=== PATIENT | female | born 1950 | race African-American/Black ===

== ENCOUNTER 2017-06-26 04:25 | Inpatient (IN) | payer OTHER, MEDICARE ==
[~2017-06-26] VITALS: Ht 157.5 cm; Wt 102.1 kg
[~2017-06-26 04:25] MED LIST: DOSTINEX PO; ENDOCET 10-3251 EACH PO; FUROSEMIDE20 M1 PO; HYDROCHLOROTHIA25 M1 PO; IBUPROFEN800 M1 PO; KLOR-CON M2020 ME1 PO; PANTOPRAZOLE SO40 M1 PO; ROCALTROL0.25 MC1 PO; ST. JOSEPH ASPI81 M1 PO; VITAMIN B12 SC; VITAMIN D31000 UNI1 PO
[2017-06-26] MEDS ORDERED: DILAUDID4 M1 PO (06:47)
[2017-06-26 07:37] LABS: ABSOLUTE BASOPHIL COUNT 0 /CUMM (0.0-0.2); ABSOLUTE EOSINOPHIL COUNT 0 /CUMM (0.0-0.7); ABSOLUTE GRANULOCYTE CT 4.4 /CUMM (1.4-6.5); ABSOLUTE MONOCYTE COUNT 0.4 /CUMM (0.10-0.60); BASOPHIL % 0.2 % (0.0-2.0); EOSINOPHIL % 0.3 % (0-5); GRANULOCYTE % 76.2 % (42.2-75.2); HEMATOCRIT 31.2 % (37-47); MEAN CORPUSCULAR HGB 26.6 PG (27.0-31.0); MEAN CORPUSCULAR VOLUME 83.2 FL (81.0-99.0); MEAN PLATELET VOLUME 8.7 FL (7.4-10.4); PLATELET COUNT 369 /CUMM (130-400); RED BLOOD CELL CT 3.75 /CUMM (4.20-5.40); WHITE BLOOD CELL COUNT 5.8 /CUMM (4.8-10.8)
--- NOTE | 2017-06-26 10:51 | Admission Core Measures ---
Acute Coronary Syndrome (CM) ACS Core Measures Acute Coronary Syndrome Diagnosis No Congestive Heart Failure (NEW) CHF Core Measures Congestive Heart Failure Diagnosis No Cerebrovascular Accident (NEW) CVA Core Measures CVA/TIA Diagnosis No Venous Thromboembolism VTE Core Yolie (View Protocol) VTE Risk Factors Surgery No Mechanical VTE Prophylaxis d/t N/A MechProphylax Ordered No VTE Pharm Prophylaxis d/t NA PharmProphylax ordered Problem List As ranked by this Provider includes Assessment & Plan 1. Pain due to knee joint prosthesis HOME MEDS Home Med List Aspirin ([place] Aspirin) 81 MG TABLET.DR 1 TAB PO DAILY HEARTHEALTH ( Reported) Calcitriol (Rocaltrol) 0.25 MCG CAPSULE 1 CAP PO DAILY UNKNOWN (Reported) Cholecalciferol (Vitamin D3) (Vitamin D3) 1,000 UNIT CAPSULE 2 CAP PO DAILY SUPPLEMENT (Reported) [DOSTINEX ] 0.5 MG 0.5 TAB PO ONCE A WEEK PER [employer] DEVELOPER (Reported) Furosemide 20 MG TABLET 1 TAB PO DAILY bp (Reported) Hydrochlorothiazide 25 MG TABLET 1 TAB PO DAILY BP (Reported) Hydromorphone HCl (Dilaudid) 4 MG TABLET 1 TAB PO TWICE DAILY PRN PAIN ( Reported) Ibuprofen 800 MG TABLET 1 TAB PO TID PRN PAIN (Reported) Pantoprazole Sodium 40 MG TABLET.DR 1 TAB PO DAILY REFLUX (Reported) Potassium Chloride (Klor-Con M20) 20 MEQ TAB.ER.PRT 2 TAB PO BID DUE TO DIURETICS (Reported) [VITAMIN B12] 1,000 MCG 1,000 MCG SC Q30D SUPPLEMENT (Reported)
--- NOTE | 2017-06-26 10:58 | Operative Report ---
Operative/Inv Procedure Report Surgery Date: 06/26/17 Name of Procedure: 1. Right total knee resection 2. Implantation of antibiotic loaded spacer Pre-Operative Diagnosis: Right periprosthetic knee infection Post-Operative Diagnosis: same Estimated Blood Loss: 50ml to 100ml Surgeon/[employer] Teacher: Tadeo GIL,Sam Tsai Anesthesia: block Operative/Procedure Note Note: Description of procedure: The patient was taken to the operating room and positively identified. After induction of spinal anesthesia she was positioned supine on the operating room table and all bony prominences were well-padded. Preoperative antibiotics were not administered at this point. A well-padded pneumatic tourniquet was placed on the right upper thigh. The right lower extremity was then prepped and draped in usual sterile fashion. After exsanguination with Esmarch the tourniquet was inflated to 275 mmHg. Utilizing the previous incision a standard medial parapatellar approach was made to the right knee. This was carried down through skin and subcutaneous tissue to the level of the fascia. Meticulous hemostasis was maintained with Bovie cautery. The extensor mechanism and patellar retinaculum were opened sharply. The medial and lateral gutters were re-created by excision of scar tissue. The patellar tendon was thinned out extensively. A medial release was performed. Samples of synovium were sent for microbiologic analysis. At this point antibiotics were administered. The femoral bone prosthesis interface was identified and disrupted utilizing a sagittal saw and osteotomes. The femoral component was removed minimizing bony damage. All retained cement was removed. Exposure continued until the tibia could be subluxed forward. Again using an oscillating saw as well as osteotomes the bone cement interface was disrupted in the tibial component was removed. All retained cement was removed from the tibial canal. The patella button was removed and a bur was used to remove the pegs. The knee was then copiously irrigated with 6 L of sterile saline. A Biomet stage I knee spacer was fashioned, utilizing 2 g of vancomycin and 1 g of tobramycin per bag of cement. Once the molds had fully cured, they were cemented into place with Palacos cement with gentamicin. The extensor mechanism and patellar retinaculum were repaired using interrupted #1 Vicryl sutures. The skin was reapproximated with interrupted 2-0 Vicryl and closed with rita. A sterile dressing was applied and the tourniquet was deflated. The patient was then taken to the recovery room in satisfactory condition.
--- NOTE | 2017-06-26 12:21 | Patient Discharge Instructions ---
Discharge Instructions General Discharge Information You were seen/treated for: Right knee pain due to prior hx total knee, periprosthetic infection You had these procedures: Revision right total knee replacement (removal total knee, implantation antibiotic spacer) Watch for these problems: Increasing pain despite the use of pain medication Increasing redness, warmth or swelling Drainage of any type from incision Inability to bear weight on operative leg Persistent nausea and vomiting Fever greater than 101.5 degrees Do not soak the wound: Yes No bath, but you may shower: Yes Other wound care: Please keep wound clean and dry. No ointments or lotions of any type on or near incision at any time. No exceptions. Your dressing will be changed by your nurse on the second day after your surgery. Daily dry dressing changes are recommended each day thereafter. Do not soak your wound in a bath at any time until otherwise indicated by your surgeon. You may shower, please dry wound immediately after shower with a clean towel. Special Instructions: Constipation: Pain medication can cause constipation. Dr. Piedra has recommended that you take Colace and miralax each day. You may discontinue this medication if you develop loose stool or diarrhea. If you wish to continue this medication, it is available over the counter. If you are unable to move your bowels after several days, if you are unable to pass gas and are developing bloating, nausea, or vomiting as a result, please contact your doctor. Diet Continue normal diet: Yes Recommended Diet: Regular Activity Full Activity/No Limits: No Activity Self Limited: Yes Pounds, do NOT lift more than: 10 Activity Limited to: Weight bear as tolerated Acute Coronary Syndrome Inclusion Criteria At DC or during hospital stay patient has or had the following: ACS DIAGNOSIS No Discharge Core Measures Meds if any: Prescribed or Continued at Discharge Meds if any: NOT Prescribed or Continued at Discharge Congestive Heart Failure Inclusion Criteria At DC or during hospital stay patient has or had the following: CHF DIAGNOSIS No Discharge Core Measures Meds if any: Prescribed or Continued at Discharge Meds if any: NOT Prescribed or Continued at Discharge Cerebrovascular accident Inclusion Criteria At DC or during hospital stay patient has or had the following: CVA/TIA Diagnosis No Discharge Core Measures Meds if any: Prescribed or Continued at Discharge Meds if any: NOT Prescribed or Continued at Discharge Venous thromboembolism Inclusion Criteria VTE Diagnosis No VTE Type NONE VTE Confirmed by (Test) NONE Discharge Core Measures - Per Current guidelines, there needs to be overlap - treatment for the first 5 days of Warfarin therapy. - If discharged on Warfarin prior to 5 days of - overlap therapy, the patient will need to be - assessed for post discharge needs including - *Post discharge parental anticoagulation - *Warfarin and/or parental anticoagulation education - *Follow up date to check INR post discharge At least 5 days overlap therapy as Inpatient No Meds if any: Prescribed or Continued at Discharge Note: Overlap Therapy is Warfarin and Anticoagulant Meds if any: NOT Prescribed or Continued at Discharge
--- NOTE | 2017-06-26 12:25 | Surgical Discharge Summary ---
Visit Information Visit Dates Admission Date: 06/26/17 Discharge Date: 06/30/17 History of Present Illness Chief Complaint: Right knee pain/infetion, hx of right total knee replacement Surgical History Pertinent Surgical History: cholecystectomy, knee replacement Review of Systems: See H&P Hospital Course Course Attending Physician: Sam Piedra MD Primary Care Physician: Osvaldo GIL,[facility] Course: Patient was admitted to the hospital for a revision right total knee replacement for a right periprosthetic knee knfection. On 06/26/17, the right total knee hardware was resected and antibiotic loaded spacer was implanted. The procedure was tolerated well, intraoperative cultures were obtained, and patient was transferred to a general surgical floor. A PICC line was inserted for administration of residential IV antibiotics. Diet was advanced and tolerated, and the patient is voiding and moving her bowels spontaneously. She was evaluated and treated by physical therapy, and is WBAT. At the time of hospital discharge , her vital signs are stable, neurovascular status is intact, and pain was controlled with the use of oral pain medications. Allergies: Coded Allergies: Penicillins (ITCHING 06/20/17) Sulfa (Sulfonamide Antibiotics) ("bad reaction" 06/20/17) Significant Procedures: Surgery Date: 06/26/17 (Dr. Piedra) Name of Procedure: 1. Right total knee resection 2. Implantation of antibiotic loaded spacer Pre-Operative Diagnosis: Right periprosthetic knee infection Disposition Summary Disposition Principal Diagnosis: Right periprosthetic knee infection Additional Diagnosis: same, s/p right total knee resection and implantation of antibiotic loaded spacer Discharge Disposition: SNF Discharge Instructions General Discharge Information Code Status: Full Code Patient's Diet: Regular, advance as tolerated Patient's Activity: WBAT Follow-Up Instructions/Appts: Follow up with Dr. Piedra in 6 weeks from date of surgery. Please call his office to arrange and/or confirm this appointment Medications at Discharge Discharge Medications: Stop taking the following medications: Aspirin ([place] Aspirin) 81 MG TABLET. ORAL DAILY Ibuprofen (Ibuprofen) 800 MG TABLET ORAL THREE TIMES DAILY as needed for PAIN Hydromorphone HCl (Dilaudid) 4 MG TABLET ORAL TWICE DAILY as needed for PAIN Continue taking these medications: Furosemide (Furosemide) 20 MG TABLET 1 Tablet ORAL DAILY Hydrochlorothiazide (Hydrochlorothiazide) 25 MG TABLET 1 Tablet ORAL DAILY Potassium Chloride (Klor-Con M20) 20 MEQ TAB.ER.PRT 2 Tablet ORAL TWICE DAILY Calcitriol (Rocaltrol) 0.25 MCG CAPSULE 1 Capsule ORAL DAILY Pantoprazole Sodium (Pantoprazole Sodium) 40 MG TABLET.DR 1 Tablet ORAL DAILY Cholecalciferol (Vitamin D3) (Vitamin D3) 1,000 UNIT CAPSULE 2 Capsule ORAL DAILY [DOSTINEX ] 0.5 MG 0.5 Tablet ORAL ONCE A WEEK [VITAMIN B12] 1,000 MCG 1,000 Microgram Inject into fatty tissue ONCE A MONTH Start taking the following new medications: Apixaban (Eliquis) 2.5 MG TABLET 1 Tablet ORAL TWICE DAILY Qty = 60 No Refills Docusate Sodium (Colace) 100 MG CAPSULE 1 Capsule ORAL TWICE DAILY Qty = 14 No Refills Instructions: DISCONTINUE USE IF YOU DEVELOP LOOSE STOOL OR DIARRHEA Polyethylene Glycol 3350 (Miralax) 17 GRAM POWD.PACK 1 Packet ORAL DAILY Qty = 7 No Refills Instructions: dissolve in water, DISCONTINUE USE IF YOU DEVELOP LOOSE STOOL OR DIARRHEA Morphine Sulfate (Ms Contin) 15 MG TABLET.ER 1 Tablet ORAL 2 x Daily as needed as needed for PAIN Qty = 6 No Refills Hydromorphone HCl (Dilaudid) 2 MG TABLET 1-2 Tablet ORAL EVERY 4-6 HOURS NEEDED as needed for PAIN Qty = 36 No Refills
[2017-06-26] MEDS ORDERED: COLACE100 M1 PO (12:30)
[2017-06-26] MEDS ORDERED: ELIQUIS2.5 M1 PO (12:30)
[2017-06-26] MEDS ORDERED: DILAUDID2 M1 PO (12:30)
[2017-06-26] MEDS ORDERED: MIRALAX17 G1 PO (12:30)
[2017-06-26] MEDS ORDERED: MS CONTIN15 M3 PO (12:30)
[2017-06-26 13:43] VITALS: BP 138/60; BP 168/60
--- NOTE | 2017-06-26 14:46 | PN- Orthopedic ---
Subjective Subjective: POSTOP CHECK r knee pain- wants higher dose pain meds as she takes vicodin at home regularly since september for knee pain. "still a little numb". no other complaints- no oob yet, no meal yet, +uo via bhatia, no cp/sob/n/v Objective Vital Signs and I&Os Vital Signs Date Time Temp Pulse Resp B/P B/P Pulse O2 O2 Flow FiO2 Mean Ox Delivery Rate 06/26 1343 98.5 61 18 168/60 94 Room Air Intake & Output 06/26 1600 06/26 0800 06/26 0000 06/25 1600 06/25 0800 06/25 0000 Intake Total Output Total Balance Patient 225 lb Weight Physical Exam: gen- nad card-s1s2 pulm- no audible wheeze ext- RLE: dressing cdi, pain at knee/distal thigh, palp dp, foot warm, gross motor intact in foot, limited sensory r foot. LLE: calf soft nt, foot warm Assessment/Plan Assessment/Plan A- POD0 sp r tkr revision/abx spacer insertion for infection, stable with uncontrolled postop pain. P- -adjust pain meds- add ms contin 15mg bid -iv vanco continuous - picc line in am- Berna PICKENS aware, pt aware. - home meds -hh diet -pt, wbat -eliquis to start in am -kyler bhatia in am Core Measures Venous Thromboembolism VTE Risk Factors Surgery No Mechanical VTE Prophylaxis d/t N/A MechProphylax Ordered No VTE Pharm Prophylaxis d/t NA PharmProphylax ordered
[2017-06-26 19:50] VITALS: BP 130/60
[2017-06-27 07:31] VITALS: BP 140/58
--- NOTE | 2017-06-27 09:10 | PN- Orthopedic ---
Subjective Subjective: No acute overnight events reported. Pt states that in initial post op period she had decreased sensory to right lower extremity, she did however receive a nerve block in pacu. She states that she is currently experiencing a return of sensory and motor. She denies chest pain, shortness of breath, and headache. She is passing flatus. Bhatia catheter in place. No nausea or vomitting. Tolerating diet. Has yet to ambulate due to sensory deficit yesterday. Objective Vital Signs and I&Os Vital Signs Date Time Temp Pulse Resp B/P B/P Pulse O2 O2 Flow FiO2 Mean Ox Delivery Rate 06/27 0731 98.3 52 18 140/58 99 Room Air 06/26 1950 98.6 58 20 130/60 95 Room Air 06/26 1343 98.5 61 18 138/60 94 Room Air Intake & Output 06/27 1600 06/27 0800 06/27 0000 06/26 1600 06/26 0800 06/26 0000 Intake Total 1280 705 700 Output Total 600 375 690 Balance 680 330 10 Intake, IV 800 225 375 Intake, Oral 480 480 325 Output, 0 0 40 Drainage Output, Urine 600 375 650 Patient 225 lb Weight Physical Exam: General: Alert and oriented x3, no acute distress Cardiac: RRR, s1s2 Pulm: CTA bilaterally Abd: +bs. soft, non-tender, non-distended Extremities: Moves all extremities, motor and sensory function intact. Skin warm and well perfused. Bilateral calves soft and non-tender. Dressing dry and intact. VEENA holding suction with sanguinous drainage, minimal. Assessment/Plan Assessment/Plan This is a 66 year old female, POD 1 s/p I&D/revision Right total knee replacement for septic joint. -PICC line today prior to administration of eliquis, consent obtained, Berna aware -Continue vancomycin 1g q12 for now, appreciate ID recommendations -Activity: OOB, WBAT -Dressing: Dressing change tomorrow by surgical PA team -Drain: Will be dc'd later today -DVT PPX: Eliquis 2.5 bid beginning this am -Diet: As tolerated, dc iv fluids this am -DC bhatia catheter -Continue current pain regimen Will d/w Dr. Piedra Core Measures Venous Thromboembolism VTE Risk Factors Surgery No Mechanical VTE Prophylaxis d/t N/A MechProphylax Ordered No VTE Pharm Prophylaxis d/t NA PharmProphylax ordered
[2017-06-27 09:41] LABS: ABSOLUTE BASOPHIL COUNT 0 /CUMM (0.0-0.2); ABSOLUTE EOSINOPHIL COUNT 0 /CUMM (0.0-0.7); ABSOLUTE MONOCYTE COUNT 0.5 /CUMM (0.10-0.60); BASOPHIL % 0 % (0.0-2.0); EOSINOPHIL % 0 % (0-5); RBC DISTRIBUTION WIDTH 17.3 % (11.5-14.5)
[2017-06-27 09:58] LABS: ABSOLUTE GRANULOCYTE CT 7.4 /CUMM (1.4-6.5); MEAN CORPUSCULAR HGB 26.8 PG (27.0-31.0); MEAN CORPUSCULAR HGB CONC 32.2 G/DL (33.0-37.0); MEAN CORPUSCULAR VOLUME 83.3 FL (81.0-99.0); MEAN PLATELET VOLUME 9.7 FL (7.4-10.4); RED BLOOD CELL CT 3.14 /CUMM (4.20-5.40)
[2017-06-27 10:02] LABS: HEMATOCRIT 26.2 % (37-47); WHITE BLOOD CELL COUNT 8.8 /CUMM (4.8-10.8)
[2017-06-27 11:35] LABS: GRANULOCYTE % 83.4 % (42.2-75.2); PLATELET COUNT 277 /CUMM (130-400)
--- NOTE | 2017-06-27 11:46 | RADIOLOGY REPORT ---
EXAMINATION: XR PORTABLE CHEST CLINICAL INFORMATION: PICC line placement confirmation COMPARISON: None TECHNIQUE: Portable frontal view of the chest was obtained. FINDINGS: There is a right-sided PICC line which terminates near the cavoatrial junction. The lungs are well expanded. There is no focal consolidation, edema, or effusion. No pneumothorax. The cardiomediastinal silhouette is within normal limits. No acute osseous abnormality. IMPRESSION: Right-sided PICC line terminating near the cavoatrial junction. Clear lungs.
[2017-06-27 14:12] VITALS: BP 140/82
--- NOTE | 2017-06-27 18:32 | ULTRASOUND REPORT ---
EXAMINATION: US TRIPLEX LOWER EXTREMITY, RIGHT CLINICAL INFORMATION: Calf pain. Status post right total knee replacement with nerve block. Surgery performed on 06/26/2017. COMPARISON: None TECHNIQUE: Color-flow triplex imaging with spectral analysis and compression Doppler were performed on the lower extremity. FINDINGS: Respiratory variation, normal compression and augmented flow are noted throughout the lower extremity. The visualized common femoral vein, superficial femoral vein, profunda femoral vein, and midcalf veins show no evidence of deep venous thrombosis. The popliteal fossa could not be evaluated due to overlying bandages. There is no focal fluid collection. IMPRESSION: Normal triplex scan without evidence of deep venous thrombosis in the right leg. Note that the popliteal fossa could not be evaluated due to overlying bandages.
[2017-06-27 22:59] VITALS: BP 130/82
[2017-06-28 06:26] VITALS: BP 136/72
[2017-06-28 09:22] LABS: ABSOLUTE BASOPHIL COUNT 0 /CUMM (0.0-0.2); ABSOLUTE EOSINOPHIL COUNT 0 /CUMM (0.0-0.7); ABSOLUTE LYMPH COUNT 1.8 /CUMM (1.2-3.4); ABSOLUTE MONOCYTE COUNT 0.8 /CUMM (0.10-0.60); BASOPHIL % 0.4 % (0.0-2.0); EOSINOPHIL % 0.5 % (0-5); GRANULOCYTE % 69.5 % (42.2-75.2); HEMATOCRIT 25.2 % (37-47); MEAN CORPUSCULAR HGB 26.9 PG (27.0-31.0); MEAN CORPUSCULAR HGB CONC 32.1 G/DL (33.0-37.0); MEAN PLATELET VOLUME 9.6 FL (7.4-10.4); PLATELET COUNT 272 /CUMM (130-400); RBC DISTRIBUTION WIDTH 17.9 % (11.5-14.5); WHITE BLOOD CELL COUNT 8.6 /CUMM (4.8-10.8)
--- NOTE | 2017-06-28 11:06 | PN- Orthopedic ---
Subjective Subjective: Concerns earlier about a malfunctioning picc line, resolved after pressure dressing removed. Pt without complaints of RUE discomfort. Denies chest pain, shortness of breath and difficulty breathing. Denies nausea and vomitting. Has been oob, ambulating. Continues to complain of consistent pain to right knee. Objective Vital Signs and I&Os Vital Signs Date Time Temp Pulse Resp B/P B/P Pulse O2 O2 Flow FiO2 Mean Ox Delivery Rate 06/28 0626 99.0 72 20 136/72 97 06/27 2259 98.1 67 18 130/82 97 Room Air 06/27 1412 98.5 65 20 140/82 94 Room Air 06/27 1308 Room Air Intake & Output 06/28 1600 06/28 0800 06/28 0000 06/27 1600 06/27 0800 06/27 0000 Intake Total 520 423 115 1275 705 Output Total 600 1050 850 600 375 Balance -80 -210 -50 680 330 Intake, IV 280 800 225 Intake, Oral 240 840 800 480 480 Output, 0 0 Drainage Output, Urine 600 1050 850 600 375 Physical Exam: General: AAO x3, no acute distress Extremities: Moves all extremities, distal sensation grossly intact. Skin warm and well perfused. DP pulses palpable bialterally. Bilateral calves soft and non-tender. Dressing dry and intact. Assessment/Plan Assessment/Plan This is a 66 year old female, POD 2, s/p infected right knee removal of prosthesis with placement of antibiotic spacer. PICC line placed one day ago, patent after pressure dressing removal this am. -Continue MS Contin 15 bid/ dilaudid 4-[address] Piedra -Continue OOB, WBAT -Dr. Guevara to see pt today, appreciate recommendations -Eliquis 2.5 mg bid for dvt ppx -Anticipate dc to str, pt has bed at [facility] Discussed with Dr. Piedra Core Measures Venous Thromboembolism VTE Risk Factors Surgery No Mechanical VTE Prophylaxis d/t N/A MechProphylax Ordered No VTE Pharm Prophylaxis d/t NA PharmProphylax ordered
--- NOTE | 2017-06-28 12:34 | Cons- Infect Disease ---
General Information and HPI Consulting Request Date of Consult: 06/28/17 Requested By: Sam Piedra MD Reason for Consult: Rule out septic right knee prosthesis Source of Information: patient Exam Limitations: poor historian History of Present Illness: This is a 66-year-old woman with a history of hypertension and osteoarthritis, status post right and left knee replacements, 7 and 5 years prior to admission respectively at [facility], status post uncomplicated laparoscopic cholecystectomy over 2 months prior to admission at [facility], treated for 2 urinary tract infections over the last month, with the development of right knee pain and swelling one month prior to admission, with an initial attempt at an arthrocentesis yielding no fluid, but with a repeat attempt several weeks prior to admission revealing over 50,000 white blood cells, 90% polys, with the fluid apparently submitted to a lab in [place], which identified calcium pyrophosphate crystals, "indeterminant" for Staph panel, "positive" for Enterococcus panel and "negative " for Chen panel, admitted on June 26 for removal of the right knee prosthesis with implantation of an antibiotic loaded spacer, with Cefazolin prophylaxis. On admission she was afebrile. Laboratory data revealed a white blood cell count of 6000. She was begun on Vancomycin postoperatively and has remained afebrile with a normal white blood cell count. Her cultures are so far negative. At present she does complain of pain in the right knee but has no other complaints. Allergies/Medications Allergies: Coded Allergies: Penicillins (ITCHING 06/20/17) Sulfa (Sulfonamide Antibiotics) ("bad reaction" 06/20/17) Home Med List: Apixaban (Eliquis) 2.5 MG TABLET 1 TAB PO BID anticoagulation Aspirin (Lemhi Aspirin) 81 MG TABLET. 1 TAB PO DAILY HEARTHEALTH ( Reported) Calcitriol (Rocaltrol) 0.25 MCG CAPSULE 1 CAP PO DAILY UNKNOWN (Reported) Cholecalciferol (Vitamin D3) (Vitamin D3) 1,000 UNIT CAPSULE 2 CAP PO DAILY SUPPLEMENT (Reported) Docusate Sodium (Colace) 100 MG CAPSULE 1 CAP PO BID CONSITPATION DISCONTINUE USE IF YOU DEVELOP LOOSE STOOL OR DIARRHEA [DOSTINEX ] 0.5 MG 0.5 TAB PO ONCE A WEEK PER 911 TELECOMMUNICATOR (Reported) Furosemide 20 MG TABLET 1 TAB PO DAILY bp (Reported) Hydrochlorothiazide 25 MG TABLET 1 TAB PO DAILY BP (Reported) Hydromorphone HCl (Dilaudid) 4 MG TABLET 1 TAB PO TWICE DAILY PRN PAIN ( Reported) Hydromorphone HCl (Dilaudid) 2 MG TABLET 1-2 TAB PO Q4-6 PRN PRN PAIN Ibuprofen 800 MG TABLET 1 TAB PO TID PRN PAIN (Reported) Morphine Sulfate (Ms Contin) 15 MG TABLET.ER 1 TAB PO BIDP PRN PAIN Pantoprazole Sodium 40 MG TABLET.DR 1 TAB PO DAILY REFLUX (Reported) Polyethylene Glycol 3350 (Miralax) 17 GRAM POWD.PACK 1 PAC PO DAILY CONSTIPATION dissolve in water, DISCONTINUE USE IF YOU DEVELOP LOOSE STOOL OR DIARRHEA Potassium Chloride (Klor-Con M20) 20 MEQ TAB.ER.PRT 2 TAB PO BID DUE TO DIURETICS (Reported) [VITAMIN B12] 1,000 MCG 1,000 MCG SC Q30D SUPPLEMENT (Reported) Past History Medical History Blood Transfusion Hx: Yes Cardiovascular: hypertension Respiratory: pneumonia Gastrointestinal: GERD Musculoskeletal: osteoarthritis Isolation History: Standard Influenza Vaccine: 04/09/17 Surgical History Surgical History: appendectomy, cholecystectomy, hysterectomy, knee replacement, GASTRIC BYPASS BREAST REDUCTION CARPAL TUNNEL Psychosocial History Where Do You Live? Home Smoking Status: Never Smoked Review of Systems Review of Systems Constitutional: Reports: chills. Denies: fever. Exam & Diagnostic Data Last 24 Hrs of Vital Signs/I&O Vital Signs Date Time Temp Pulse Resp B/P B/P Pulse O2 O2 Flow FiO2 Mean Ox Delivery Rate 06/28 0626 99.0 72 20 136/72 97 06/27 2259 98.1 67 18 130/82 97 Room Air 06/27 1412 98.5 65 20 140/82 94 Room Air 06/27 1308 Room Air Intake & Output 06/28 1600 06/28 0800 06/28 0000 Intake Total 520 840 Output Total 600 1050 Balance -80 -210 Intake, IV 280 Intake, Oral 240 840 Output, Urine 600 1050 Physical Exam Other Physical Findings: Afebrile. She is awake and alert in no acute distress. Skin reveals no rash. HEENT negative. Neck is supple with no adenopathy. Lungs are clear. Heart regular rhythm with no murmur. Abdomen is obese, soft, nontender with positive bowel sounds. Back no CVA tenderness. Extremities right knee incision clean, with no erythema or drainage; decreased range of motion; left knee with no inflammation and with good range of motion. Neuro is without focality. Last 24 Hours of Lab Results: Laboratory Tests 06/28 0730 Chemistry Sodium (137 - 145 mmol/L) 136 L Potassium (3.5 - 5.1 mmol/L) 4.2 Chloride (98 - 107 mmol/L) 100 Carbon Dioxide (22 - 30 mmol/L) 28 Anion Gap (5 - 16) 8 BUN (7 - 17 mg/dL) 15 Creatinine (0.5 - 1.0 mg/dL) 0.6 Estimated GFR (>60 ml/min) > 60 BUN/Creatinine Ratio (7 - 25 %) 25.0 Hematology CBC w Diff NO MAN DIFF REQ WBC (4.8 - 10.8 /CUMM) 8.6 RBC (4.20 - 5.40 /CUMM) 3.00 L Hgb (12.0 - 16.0 G/DL) 8.1 L Hct (37 - 47 %) 25.2 L MCV (81.0 - 99.0 FL) 84.0 MCH (27.0 - 31.0 PG) 26.9 L RDW (11.5 - 14.5 %) 17.9 H Plt Count (130 - 400 /CUMM) 272 MPV (7.4 - 10.4 FL) 9.6 Gran % (42.2 - 75.2 %) 69.5 Lymphocytes % (20.5 - 51.1 %) 20.9 Monocytes % (1.7 - 9.3 %) 8.7 Eosinophils % (0 - 5 %) 0.5 Basophils % (0.0 - 2.0 %) 0.4 Absolute Granulocytes (1.4 - 6.5 /CUMM) 6.0 Absolute Lymphocytes (1.2 - 3.4 /CUMM) 1.8 Absolute Monocytes (0.10 - 0.60 /CUMM) 0.8 H Absolute Eosinophils (0.0 - 0.7 /CUMM) 0 Absolute Basophils (0.0 - 0.2 /CUMM) 0 PUBS MCHC (33.0 - 37.0 G/DL) 32.1 L Last 24 Hours of Christopher Results: OR cultures June 26 labeled right knee synovium negative, with 1 specimen revealing few white blood cells and rare gram-positive cocci Urine culture June 26 negative Diagnostic Data Recent Imaging Findings: Doppler of the right lower extremity June 27 negative Chest x-ray June 27 negative Assessment/Plan Assessment/Plan Impression: This is a 66-year-old woman with a history of hypertension and osteoarthritis, status post right and left knee replacements, 7 and 5 years prior to admission respectively at [facility], status post uncomplicated laparoscopic cholecystectomy over 2 months prior to admission at [facility], treated for 2 urinary tract infections over the past month, with the development of right knee pain and swelling one month prior to admission, with arthrocentesis revealing over 50,000 white blood cells, 90% polys, with the fluid apparently submitted to a lab in [place], which identified calcium pyrophosphate crystals, "indeterminant" for Staph panel , "positive" for Enterococcus panel and "negative" for Chen panel, admitted on June 26 for removal of the right knee prosthesis with implantation of an antibiotic loaded spacer. The OR cultures are so far negative and, with evidence of calcium pyrophosphate crystals, her inflammation may all be secondary to pseudogout. A gram stain of one of the OR specimens did reveal rare gram-positive cocci and she can be continued on antibiotics pending final cultures. The significance of the culture results from [place] is unclear and it is difficult to recommend treatment based on these results. She was recently treated for a urinary tract infection, which could affect her OR cultures, but she states she was off antibiotics for at least 4 days prior to admission. Suggestion: 1. Follow-up final OR cultures 2. Further treatment of pseudogout per Orthopedics 3. Continue Vancomycin pending above, but, if final cultures are negative, would discontinue Vancomycin and follow off antibiotics Joie Mcmahon MD is covering until July 02 Consult Acknowledgment - Thank you for your consult request.
[2017-06-28 14:29] VITALS: BP 116/62
[2017-06-28 22:31] VITALS: BP 134/72
--- NOTE | 2017-06-29 08:59 | PN- Orthopedic ---
Subjective Subjective: Still in moderate to severe pain, most pain is anterior as well as cramping sensation in the lateral lower leg. Thinks she may have had a fever last night. No chest pain or shortness of breath no cough Objective Vital Signs and I&Os Vital Signs Date Time Temp Pulse Resp B/P B/P Pulse O2 O2 Flow FiO2 Mean Ox Delivery Rate 06/28 2231 99.4 68 18 134/72 94 Room Air 06/28 1751 99.2 06/28 1429 99.8 79 18 116/62 96 Room Air Intake & Output 06/29 1600 06/29 0800 06/29 0000 06/28 1600 06/28 0800 06/28 0000 Intake Total 480 790 520 840 Output Total 1800 327 406 364 7382 Balance -1800 153 365 -80 -210 Intake, IV 290 280 Intake, Oral 480 500 240 840 Number 1 Bowel Movements Output, Stool 2 Output, Urine 1800 325 210 577 6844 Physical Exam: Well-developed well-nourished no apparent distress. HEENT: Atraumatic, extraocular motion intact Neck: Supple, no lymphadenopathy Respiratory: No respiratory distress Extremities: No edema RIGHT lower extremity dressing in place, Incision line is clean dry and intact No signs of infection. Mild joint effusion Range of motion is 5-75. Neurovascularly intact distally Bilateral calves are supple, nontender. Neuro: Alert and oriented x3 Psych: Mood affect normal, normal memory normal judgment. Skin: Warm and dry, no rash on exposed skin Results Last 48 Hours of Labs: Laboratory Tests 06/28 0730 Chemistry Sodium (137 - 145 mmol/L) 136 L Potassium (3.5 - 5.1 mmol/L) 4.2 Chloride (98 - 107 mmol/L) 100 Carbon Dioxide (22 - 30 mmol/L) 28 Anion Gap (5 - 16) 8 BUN (7 - 17 mg/dL) 15 Creatinine (0.5 - 1.0 mg/dL) 0.6 Estimated GFR (>60 ml/min) > 60 BUN/Creatinine Ratio (7 - 25 %) 25.0 Hematology CBC w Diff NO MAN DIFF REQ WBC (4.8 - 10.8 /CUMM) 8.6 RBC (4.20 - 5.40 /CUMM) 3.00 L Hgb (12.0 - 16.0 G/DL) 8.1 L Hct (37 - 47 %) 25.2 L MCV (81.0 - 99.0 FL) 84.0 MCH (27.0 - 31.0 PG) 26.9 L RDW (11.5 - 14.5 %) 17.9 H Plt Count (130 - 400 /CUMM) 272 MPV (7.4 - 10.4 FL) 9.6 Gran % (42.2 - 75.2 %) 69.5 Lymphocytes % (20.5 - 51.1 %) 20.9 Monocytes % (1.7 - 9.3 %) 8.7 Eosinophils % (0 - 5 %) 0.5 Basophils % (0.0 - 2.0 %) 0.4 Absolute Granulocytes (1.4 - 6.5 /CUMM) 6.0 Absolute Lymphocytes (1.2 - 3.4 /CUMM) 1.8 Absolute Monocytes (0.10 - 0.60 /CUMM) 0.8 H Absolute Eosinophils (0.0 - 0.7 /CUMM) 0 Absolute Basophils (0.0 - 0.2 /CUMM) 0 PUBS MCHC (33.0 - 37.0 G/DL) 32.1 L Assessment/Plan Assessment/Plan This is a 66 year old female, POD 3, s/p infected right knee removal of prosthesis with placement of antibiotic spacer. PICC line placed one day ago, patent after pressure dressing removal this am. -Continue pain regiment, avoid IV narcotics with plans to discharge patient to half-way facility later today versus tomorrow. Pain has been an issue for her and she may need another day following her revision surgery -monitor for fever -Continue OOB, WBAT -ID following, appreciate recommendations, awaiting final or cultures -Eliquis 2.5 mg bid for dvt ppx -Daily dressing changes, dry sterile dressing applied today by myself Core Measures Venous Thromboembolism VTE Risk Factors Surgery No Mechanical VTE Prophylaxis d/t N/A MechProphylax Ordered No VTE Pharm Prophylaxis d/t NA PharmProphylax ordered
--- NOTE | 2017-06-29 13:52 | PN- Infect Dx ---
Subjective Subjective: R knee with decreased swelling; reports local discomfort. No fever. Review of Systems Comments: 12 points reviewed as noted, otherwise negative. Objective Last 24 Hrs of Vital Signs/I&O Vital Signs Date Time Temp Pulse Resp B/P B/P Pulse O2 O2 Flow FiO2 Mean Ox Delivery Rate 06/28 2231 99.4 68 18 134/72 94 Room Air 06/28 1751 99.2 06/28 1429 99.8 79 18 116/62 96 Room Air Intake & Output 06/29 1600 06/29 0800 06/29 0000 Intake Total 480 Output Total 1800 327 Balance -1800 153 Intake, Oral 480 Number 1 Bowel Movements Output, Stool 2 Output, Urine 1800 325 Physical Exam Other Physical Findings: Afebrile. She is awake and alert in no acute distress. Skin reveals no rash. HEENT negative. Neck is supple with no adenopathy. Lungs are clear. Heart regular rhythm with no murmur. Abdomen is obese, soft, nontender with positive bowel sounds. Back no CVA tenderness. Extremities right knee incision clean, with no erythema or drainage; decreased range of motion; left knee with no inflammation and with good range of motion. Neuro is without focality. Results Last 24 Hours of Lab Results: SPEC #: [id number] GELA: 06/26/17 STATUS: COMP RECD: 06/26/[address]: Tadeo GILRowe SOURCE: EXTREMITIE ENTR: 06/26/17 [facility] DR: Osvaldo GIL,[facility]: KNEE RIGHT ORDERED: XTRMOR COMMENT: ADDITIONAL INFORMATION: RIGHT KNEE SYNOVIUM RECEIVED 1 LARGE PIECE OF SYNOVIAL TISSUE IN STERILE CUP Procedure Result > GRAM STAIN Final 06/26/171453 WHITE BLOOD CELLS FEW GRAM POSITIVE COCCI RARE > EXTREMITIES OR SPECIMEN Final 06/29/171217 NO GROWTH AFTER 3 DAYS Last 24 Hours of Christopher Results: CXR FINDINGS: There is a right-sided PICC line which terminates near the cavoatrial junction. The lungs are well expanded. There is no focal consolidation, edema, or effusion. No pneumothorax. The cardiomediastinal silhouette is within normal limits. No acute osseous abnormality. IMPRESSION: Right-sided PICC line terminating near the cavoatrial junction. Clear lungs. DICTATED BY: Adam GIL,Aneduy DATE/TIME DICTATED:06/27/171140 INVENTORY ASSOCIATE:FER DATE/TIME TRANSCRIBED:06/27/171140 Assessment/Plan Impression: 66-year-old woman with a history of hypertension and osteoarthritis, status post right and left knee replacements, 7 and 5 years prior to admission respectively at [facility], developed right knee pain and swelling one month prior to admission, with arthrocentesis revealing over 50,000 white blood cells, 90% polys, with the fluid apparently submitted to a lab in [place], which identified calcium pyrophosphate crystals, "indeterminant" for Staph panel, "positive" for Enterococcus panel and "negative" for Chen panel, admitted on June 26 for removal of the right knee prosthesis with implantation of an antibiotic loaded spacer. POD 3, s/p infected right knee removal of prosthesis with placement of antibiotic spacer. PICC line placed one day ago, patent after pressure dressing removal this am. The OR cultures are so far negative and, with evidence of calcium pyrophosphate crystals. A gram stain of the OR specimens did reveal rare gram-positive cocci and she can be continued on antibiotics pending final cultures. The significance of the culture results from [place] is unclear and it is difficult to recommend treatment based on these results. She was recently treated for a urinary tract infection, which could affect her OR cultures, but she states she was off antibiotics for at least 4 days prior to admission. Suggestion: 1. Follow-up final OR cultures (06/30); obtain ESR/CRP in am. 2. Further treatment of pseudogout per Orthopedics 3. Continue Vancomycin pending above.
[2017-06-29 15:01] VITALS: BP 138/78
[2017-06-29 22:10] VITALS: BP 144/60
[2017-06-30 06:58] VITALS: BP 126/74
--- NOTE | 2017-06-30 09:30 | PN- Orthopedic ---
Subjective Subjective: "I'm getting better but I still have a lot of pain" "Don't push me out of here- I'm not ready" No cp/sob/n/v, clover hh diet, +voids, +bm. OOB with PT this am "went ok" Objective Vital Signs and I&Os Vital Signs Date Time Temp Pulse Resp B/P B/P Pulse O2 O2 Flow FiO2 Mean Ox Delivery Rate 06/30 0658 98.7 84 18 126/74 95 Room Air 06/29 2210 98.1 84 18 144/60 96 Room Air 06/29 1501 98.8 76 18 138/78 98 Room Air Intake & Output 06/30 1600 06/30 0800 06/30 0000 06/29 1600 06/29 0800 06/29 0000 Intake Total 510 780 900 480 Output Total 1800 327 Balance 510 780 900 -1800 153 Intake, IV 30 300 300 Intake, Oral 480 480 600 480 Number 2 2 1 Bowel Movements Output, Stool 2 Output, Urine 1800 325 OR cultures x2: negative x3 days (final) Physical Exam: gen- nad card- s1s2 rrr pulm- ctab abd- soft nt ext- right knee incision CDI, no erythema or drainage, ttp at incision, slight edema, dressing intact. right foot warm with palp dp, gross sensate/motor intact. bl calves soft nt. Results Last 48 Hours of Labs: Laboratory Tests 06/30 0530 Chemistry C-Reactive Prot, Quant Pending Hematology ESR Westergren Pending Assessment/Plan Assessment/Plan A- POD4 sp R TKR revision (hardware removal, abx spacer insertion), currently stable with continued postop pain, helped with current pain med regimen, with final OR cxs negative. P- cont shelter vanco via picc per Dr. Piedra appreciate ID input OOB, ambulate, WBAT, PT eliquis 2.5 BID, ALPS at rest hh diet continue PO pain meds dc planning to [facility]- ?has bed will dw w attending Core Measures Venous Thromboembolism VTE Risk Factors Surgery No Mechanical VTE Prophylaxis d/t N/A MechProphylax Ordered No VTE Pharm Prophylaxis d/t NA PharmProphylax ordered
--- NOTE | 2017-06-30 10:51 | PN- Infect Dx ---
Subjective Subjective: Patient with improved discomfort R knee; no fever/chills. Review of Systems Comments: 12 points reviewed as noted, otherwise negative. Objective Last 24 Hrs of Vital Signs/I&O Vital Signs Date Time Temp Pulse Resp B/P B/P Pulse O2 O2 Flow FiO2 Mean Ox Delivery Rate 06/30 0658 98.7 84 18 126/74 95 Room Air 06/29 2210 98.1 84 18 144/60 96 Room Air 06/29 1501 98.8 76 18 138/78 98 Room Air Intake & Output 06/30 1600 06/30 0800 06/30 0000 Intake Total 510 780 Output Total Balance 510 780 Intake, IV 30 300 Intake, Oral 480 480 Number 2 Bowel Movements Physical Exam Other Physical Findings: Afebrile. She is awake and alert in no acute distress. Skin reveals no rash. HEENT negative. Neck is supple with no adenopathy. Lungs are clear. Heart regular rhythm with no murmur. Abdomen is obese, soft, nontender with positive bowel sounds. Back no CVA tenderness. Extremities right knee incision clean, with no erythema or drainage; decreased range of motion; left knee with no inflammation and with good range of motion. Neuro is without focality. Results Last 24 Hours of Lab Results: Laboratory Tests 06/30 530 Chemistry C-Reactive Prot, Quant (<1.0 mg/dL) 7.9 H Hematology ESR Westergren (0 - 20 MM) 57 H Last 24 Hours of Christopher Results: SPEC #: [id number] GELA: 06/26/17 STATUS: COMP RECD: 06/26/[address]: Tadeo GILWayne SOURCE: EXTREMITIE ENTR: 06/26/17 [facility] DR: Osvaldo GIL,[facility]: KNEE RIGHT ORDERED: XTRMOR COMMENT: ADDITIONAL INFORMATION: RIGHT KNEE SYNOVIUM #2 RECEIVED SEVERAL SMALLER SYNOVIUM TISSUE PIECES IN STERILE CUP. Procedure Result > GRAM STAIN Final 06/26/17 WHITE BLOOD CELLS FEW OTHER NO ORGANISMS SEEN > EXTREMITIES OR SPECIMEN Final 06/30/17 NO GROWTH AFTER 3 DAYS Recent Imaging Studies: SERVICE DATE: 06/27/17 EXAM TYPE: RAD - XRY-PORTABLE CHEST XRAY EXAMINATION: XR PORTABLE CHEST CLINICAL INFORMATION: PICC line placement confirmation COMPARISON: None TECHNIQUE: Portable frontal view of the chest was obtained. FINDINGS: There is a right-sided PICC line which terminates near the cavoatrial junction. The lungs are well expanded. There is no focal consolidation, edema, or effusion. No pneumothorax. The cardiomediastinal silhouette is within normal limits. No acute osseous abnormality. IMPRESSION: Right-sided PICC line terminating near the cavoatrial junction. Clear lungs. DICTATED BY: Adam GIL,Aneudy DATE/TIME DICTATED:06/27/171140 HYDROGRAPHICAL TECHNICAL OFFICER:FER DATE/TIME TRANSCRIBED:06/27/171140 CONFIDENTIAL, DO NOT COPY WITHOUT APPROPRIATE AUTHORIZATION. <Electronically signed in Other Vendor System> SIGNED BY: Adam GIL,Aneudy 06/27 Assessment/Plan Impression: 66-year-old woman with a history of hypertension and osteoarthritis, status post right and left knee replacements, 7 and 5 years prior to admission respectively at [place], developed right knee pain and swelling one month prior to admission, with arthrocentesis revealing over 50,000 white blood cells, 90% polys, with the fluid apparently submitted to a lab in [place], which identified calcium pyrophosphate crystals, "indeterminant" for Staph panel, "positive" for Enterococcus panel and "negative" for Chen panel, admitted on June 26 for removal of the right knee prosthesis with implantation of an antibiotic loaded spacer. POD 4, s/p right knee removal of prosthesis with placement of antibiotic spacer. The OR cultures are so far negative and, with evidence of calcium pyrophosphate crystals. A gram stain of the OR specimens did reveal rare gram-positive cocci; OR cultures x 3 NGTD. She was recently treated for a urinary tract infection, which could affect her OR cultures, but she states she was off antibiotics for at least 4 days prior to admission. Moderate elev ESR. Suggestion: 1. F/U ESR/CRP/CBC/BMP weekly for the next 4 weeks while at [facility] ([facility]). 2. Further treatment of pseudogout per Orthopedics 3. Discontinue Vancomycin/PICC.
[2017-06-30] MEDS ORDERED: VANCO 1 GR1 GM/250 M IV (10:57)
[2017-06-30] MEDS ORDERED: HYDROMORPHONE HC2 M1 PO (10:57)
[2017-06-30 14:42] VITALS: BP 126/74
== END 2017-06-30 16:00 | DRG 464 ==
LOC: SDA 04:25 → 2NB 04:25 → ENRESERV 11:54 → ENTRNSPT 12:51 → EDTRNSPTSTS 13:09 → 2NB 13:17 → CMPTRNSPT 13:27 → ENPENDDIS 06-30 15:00 → 2NB 06-30 16:00
PROVIDERS: Nurse Practitioner; Orthopaedic Surgery
PROC: 0SPC0JZ Removal of Synthetic Substitute from Right Knee Joint, Open Approach (ICD-10-PCS; principal; 2017-06-26)
PROC: 0SHC08Z Insertion of Spacer into Right Knee Joint, Open Approach (ICD-10-PCS; 2017-06-26)
PROC: 02HV33Z Insertion of Infusion Device into Superior Vena Cava, Percutaneous Approach (ICD-10-PCS; 2017-06-26)
DX: T84.53XA Infection and inflammatory reaction due to internal right knee prosthesis, initial encounter (principal); Z68.41 Body mass index [BMI] 40.0-44.9, adult; B99.9 Unspecified infectious disease; I10 Essential (primary) hypertension; E66.9 Obesity, unspecified; K21.9 Gastro-esophageal reflux disease without esophagitis; M19.90 Unspecified osteoarthritis, unspecified site
CPT/HCPCS: 2NBSP; 87070; 87075; 36415; 82436; 87086; 97110-GO; 97112-GO; 97116-GO; 97161-GP; 97530-GO; C1713; C1769; J0131; J0690; J1885; J2997; J3370; J7040; J7042

== ENCOUNTER 2017-09-30 02:32 | Inpatient (IN) | payer OTHER, MEDICARE ==
[~2017-09-30] VITALS: Ht 157.5 cm; Wt 86.6 kg
[~2017-09-30 02:32] MED LIST changes: +ASPIRIN EC81 M1 PO; +CABERGOLINE0.5 M2 PO; +CITRACAL + D M1 EACH PO; +COLACE100 M1 PO; +CYANOCOBAL1000 MCG/2 IM; +DILAUDID2 M1 PO; +DILAUDID4 M1 PO; +ELIQUIS2.5 M1 PO; +HYDROMORPHONE HC2 M1 PO; +MIRALAX17 G1 PO; +MS CONTIN15 M3 PO; +VANCO 1 GR1 GM/250 M IV; +VITAMIN D2000 UNIT PO
--- NOTE | 2017-09-30 11:06 | Admission Core Measures ---
Acute Coronary Syndrome (CM) ACS Core Measures Acute Coronary Syndrome Diagnosis No Congestive Heart Failure (NEW) CHF Core Measures Congestive Heart Failure Diagnosis No Cerebrovascular Accident (NEW) CVA Core Measures CVA/TIA Diagnosis No Venous Thromboembolism VTE Core Yolie (View Protocol) VTE Risk Factors Surgery No Mechanical VTE Prophylaxis d/t N/A MechProphylax Ordered No VTE Pharm Prophylaxis d/t NA PharmProphylax ordered Problem List As ranked by this Provider includes Assessment & Plan 1. Pain due to knee joint prosthesis HOME MEDS Home Med List Aspirin (Ecotrin*) 81 MG TABLET.DR 1 TAB PO DAILY HEART/BLOOD (Reported) Cabergoline 0.5 MG TABLET 1 TAB PO QSUN PITUITARY TUMOR (Reported) Calcitriol (Rocaltrol) 0.25 MCG CAPSULE 1 CAP PO DAILY SUPPLEMENT (Reported) Calcium Citrate/Vitamin D3 (Citracal + D Maximum Caplet) (Unknown Strength) TABLET (Unknown Dose) PO DAILY SUPPLEMENT (Reported) Cholecalciferol (Vitamin D3) (Vitamin D) 2,000 UNIT CAPSULE 2 CAP PO DAILY SUPPLEMENT (Reported) Cyanocobalamin (Vitamin B-12) (Cyanocobalamin Injection) 1,000 MCG/ML VIAL 1 ML IM Q30D SUPPLEMENT (Reported) Furosemide 20 MG TABLET 1 TAB PO DAILY PRN DIURETIC (Reported) Hydrochlorothiazide 25 MG TABLET 1 TAB PO DAILY BP (Reported) Hydromorphone HCl 2 MG TABLET 2-3 TAB PO Q3H PRN PAIN (Reported) Pantoprazole Sodium 40 MG TABLET.DR 1 TAB PO DAILY REFLUX (Reported) Potassium Chloride (Klor-Con M20) 20 MEQ TAB.ER.PRT 2 TAB PO BID DUE TO DIURETICS (Reported)
[2017-09-30] MEDS ORDERED: ASPIRIN EC325 M2 PO (11:09)
[2017-09-30] MEDS ORDERED: MIRALAX17 G1 PO (11:09)
[2017-09-30] MEDS ORDERED: COLACE100 M1 PO (11:09)
[2017-09-30] MEDS ORDERED: DILAUDID2 M1 PO (11:09)
--- NOTE | 2017-09-30 11:11 | Patient Discharge Instructions ---
Discharge Instructions General Discharge Information You were seen/treated for: Painful hardware s/p R total knee replacement You had these procedures: Revision right total knee replacement Watch for these problems: Increasing pain despite the use of pain medication Increasing redness, warmth or swelling Drainage of any type from incision Inability to bear weight on operative leg Persistent nausea and vomiting Fever greater than 101.5 degrees Do not soak the wound: Yes No bath, but you may shower: Yes Other wound care: Please keep wound clean and dry. No ointments or lotions of any type on or near incision at any time. No exceptions. Your dressing will be changed by your nurse on the second day after your surgery. Daily dry dressing changes are recommended each day thereafter. Do not soak your wound in a bath at any time until otherwise indicated by your surgeon. You may shower, please dry wound immediately after shower with a clean towel. Special Instructions: Aspirin: You are taking this medication to help prevent blood clot formation. Please take with food to protect your stomach lining. Please take as directed. Constipation: Pain medication can cause constipation. Dr. Piedra has recommended that you take Colace and miralax each day. You may discontinue this medication if you develop loose stool or diarrhea. If you wish to continue this medication, it is available over the counter. If you are unable to move your bowels after several days, if you are unable to pass gas and are developing bloating, nausea, or vomiting as a result, please contact your doctor. Diet Continue normal diet: Yes Recommended Diet: Regular Activity Full Activity/No Limits: No Activity Self Limited: Yes Pounds, do NOT lift more than: 10 Acute Coronary Syndrome Inclusion Criteria At DC or during hospital stay patient has or had the following: ACS DIAGNOSIS No Discharge Core Measures Meds if any: Prescribed or Continued at Discharge Meds if any: NOT Prescribed or Continued at Discharge Congestive Heart Failure Inclusion Criteria At DC or during hospital stay patient has or had the following: CHF DIAGNOSIS No Discharge Core Measures Meds if any: Prescribed or Continued at Discharge Meds if any: NOT Prescribed or Continued at Discharge Cerebrovascular accident Inclusion Criteria At DC or during hospital stay patient has or had the following: CVA/TIA Diagnosis No Discharge Core Measures Meds if any: Prescribed or Continued at Discharge Meds if any: NOT Prescribed or Continued at Discharge Venous thromboembolism Inclusion Criteria VTE Diagnosis No VTE Type NONE VTE Confirmed by (Test) NONE Discharge Core Measures - Per Current guidelines, there needs to be overlap - treatment for the first 5 days of Warfarin therapy. - If discharged on Warfarin prior to 5 days of - overlap therapy, the patient will need to be - assessed for post discharge needs including - *Post discharge parental anticoagulation - *Warfarin and/or parental anticoagulation education - *Follow up date to check INR post discharge At least 5 days overlap therapy as Inpatient No Meds if any: Prescribed or Continued at Discharge Note: Overlap Therapy is Warfarin and Anticoagulant Meds if any: NOT Prescribed or Continued at Discharge
--- NOTE | 2017-09-30 11:15 | Surgical Discharge Summary ---
Visit Information Visit Dates Admission Date: 09/30/17 Discharge Date: 10/03/2017 History of Present Illness Chief Complaint: Painful hardware s/p r total knee replacement Medical History Cardiovascular: hypertension Respiratory: pneumonia Gastrointestinal: GERD Musculoskeletal: osteoarthritis History of MRSA: No History of VRE: No History of CDIFF: No Isolation History: Standard Influenza Vaccine: 04/09/17 Surgical History Pertinent Surgical History: appendectomy, cholecystectomy, hysterectomy, knee replacement, GASTRIC BYPASS BREAST REDUCTION CARPAL TUNNEL Psychosocial History Who Do You Live With? Spouse What is Your Primary Language? [place] Citizen Review of Systems: See H&P Hospital Course Course Attending Physician: Sam Piedra MD Primary Care Physician: Osvaldo GIL,[facility] Course: Patient was admitted to the hospital for a revision of a right total knee replacement. The procedure was tolerated well and patient was transferred to a general surgical floor. Diet was advanced and tolerated, and the patient voided spontaneously. The patient was evaluated and treated by physical therapy. At the time of hospital discharge, the vital signs were stable, neurovascular status was intact, and pain was controlled with the use of oral pain medications. Her incision looked good without signs of iinfection. She was deemed stable for discharge to rehab. Allergies: Coded Allergies: Penicillins (ITCHING 06/20/17) Sulfa (Sulfonamide Antibiotics) ("bad reaction" PER PT CAN REMEMBER ONLY ITCHING AND SCRATCH 09/26/17) Significant Procedures: See operative report Disposition Summary Disposition Principal Diagnosis: Painful right total knee replacement Additional Diagnosis: None Discharge Disposition: SNF Discharge Instructions General Discharge Information Code Status: Full Code Patient's Diet: Regular, advance as tolerated Patient's Activity: WBAT Follow-Up Instructions/Appts: Follow up with Dr. Piedra in 6 weeks from date of surgery. Please call his office to arrange and/or confirm this appointment. Medications at Discharge Discharge Medications: Stop taking the following medications: Aspirin (Ecotrin*) 81 MG TABLET. ORAL DAILY Hydromorphone HCl (Hydromorphone HCl) 2 MG TABLET ORAL Q3H as needed for PAIN Continue taking these medications: Furosemide (Furosemide) 20 MG TABLET 1 Tablet ORAL DAILY as needed for DIURETIC Comments: LAST GIVEN 06/30/17 @ 1130 Hydrochlorothiazide (Hydrochlorothiazide) 25 MG TABLET 1 Tablet ORAL DAILY Comments: LAST GIVEN 06/30/17 @ 1130 Potassium Chloride (Klor-Con M20) 20 MEQ TAB.ER.PRT 2 Tablet ORAL TWICE DAILY Calcitriol (Rocaltrol) 0.25 MCG CAPSULE 1 Capsule ORAL DAILY Comments: LAST GIVEN 06/30/17 @ 1130 Pantoprazole Sodium (Pantoprazole Sodium) 40 MG TABLET.DR 1 Tablet ORAL DAILY Cabergoline (Cabergoline) 0.5 MG TABLET 1 Tablet ORAL EVERY SATURDAY Calcium Citrate/Vitamin D3 (Citracal + D Maximum Caplet) (Unknown Strength) TABLET Unknown Dose ORAL DAILY Cyanocobalamin (Vitamin B-12) (Cyanocobalamin Injection) 1,000 MCG/ML VIAL 1 Milliliters INTRAMUSC ONCE A MONTH Cholecalciferol (Vitamin D3) (Vitamin D) 2,000 UNIT CAPSULE 2 Capsule ORAL DAILY Start taking the following new medications: Hydromorphone HCl (Dilaudid) 2 MG TABLET 1-2 Tablet ORAL EVERY 3 HOURS NEEDED as needed for PAIN Qty = 36 No Refills Morphine Sulfate (Morphine Sulfate ER) 15 MG TABLET.ER 1 Tablet ORAL TWICE DAILY Qty = 6 No Refills Instructions: MAY USE FOR PAIN FOR THREE MORE DAYS AFTER DISCHARGE Aspirin (Ecotrin*) 325 MG TABLET.DR 1 Tablet ORAL TWICE DAILY Qty = 60 No Refills Polyethylene Glycol 3350 (Miralax) 17 GRAM POWD.PACK 1 Packet ORAL DAILY Qty = 7 No Refills Instructions: dissolve in water, DISCONTINUE USE IF YOU DEVELOP LOOSE STOOL OR DIARRHEA Docusate Sodium (Colace) 100 MG CAPSULE 1 Capsule ORAL TWICE DAILY Qty = 14 No Refills Instructions: DISCONTINUE USE IF YOU DEVELOP LOOSE STOOL OR DIARRHEA Copies To: Tadeo GIL,Sam
--- NOTE | 2017-09-30 13:15 | Operative Report ---
Operative/Inv Procedure Report Surgery Date: 09/30/17 Name of Procedure: 1. Right total knee revision 2. Removal of nonbiodegradable antibiotic delivery device Pre-Operative Diagnosis: Right knee spacer Post-Operative Diagnosis: Same Estimated Blood Loss: 50ml to 100ml Surgeon/Product Expert: Tadeo GIL,Sam Tsai Anesthesia: block Operative/Procedure Note Note: Description of Procedure: The patient was taken to the operating room and positively identified. After induction of spinal anesthesia and administration of appropriate pre-operative antibiotics, the patient was positioned supine on the operating room table and all bony prominences were well padded. A well-padded pneumatic tourniquet was placed on the right upper thigh. After performing a surgical timeout, the right lower extremity was prepped and draped in the usual sterile fashion. After exsanguination with Esmarch the tourniquet was inflated to 250mm of mercury. Utilizing the previous incision a standard medial parapatellar approach was made to the right knee. Copious scar tissue was encountered. Due to the amount of scar tissue, took twice as long as it would normally. The medial and lateral gutters were re-created via excision of scar tissue. The femur and the tibia were mobilized. Utilizing straight osteotome, the previously placed antibiotic spacer was broken up and removed. The ends of the femur and tibia were curetted free of soft tissue and debris and a posterior capsule release was performed. Samples of synovial scar tissue was sent for analysis. The femoral and tibial canals were then sequentially reamed. The femur was reamed up to 19 mm and the tibia to 18 mm. Utilizing the reamers as an intramedullary guide, the distal femoral cut and proximal tibial cut were refreshed and trued up. The proximal tibia was sized to accept a size 4 universal tibial baseplate and size 18 x 100 mm fluted stem. Trial component was impacted into place. Attention was then turned to the femur. After assessment of the extension and flexion gaps, the intracondylar notch was deepened. The femur was then appropriately cut to accept a size 3 total stabilized femoral component with a 5 mm distal lateral and 10 mm distal medial augment. A 10 mm posteromedial and 5 mm posterolateral augment also used. This construct was then trialed with a 19 mm x 100 mm fluted stem. A 19 mm total stabilized polyethylene was trialed along with an a 35 patella. This yielded excellent range of motion stability and patellar tracking. All trial components removed and the knee was extensively irrigated. All retained remaining soft tissue was debrided. The revision components were then cemented into place using Liam Simplex cement with tobramycin. All the components were of the Liam triathlon knee system of the above mentioned sizes. The knee was again irrigated after cementation. A drain was placed. The extensor mechanism and patellar retinaculum were repaired using interrupted #1 Vicryl sutures. The skin was reapproximated with interrupted 2-0 Vicryl and closed with rita. A sterile dressing was applied, the tourniquet was deflated and the patient was awakened and taken to recovery room in satisfactory condition.
--- NOTE | 2017-09-30 15:18 | PN- Orthopedic ---
Subjective Subjective: POST-OP CHECK Pt in PACU, no complaints of pain. Denies paresthesias. No N/V. Denies CP/SOB/HELMS. Objective Vital Signs and I&Os VSS, afebrile Physical Exam: gen- NAD resp- cclear cardiac- RRR abd- ND, soft, NT ext- Right knee in clean dry Guille-wrap. Calf is soft, nontender. OnQ and drain in place with minimal sang drainage. distal sensory and motor function intact. 2+ PT pulse Assessment/Plan Assessment/Plan 66yo F SP Right Toatal Knee Revision POD0. Stable Cristal-op ABX- Ancef DVT ppx- [id number] bid and ALPS Pain management- PO meds and OnQ to stay in for 48hours Regular home meds Velázquez out in AM IVF to continue overnight Reg diet PT- WBAT FU Am labs dressing change POD2 Core Measures Venous Thromboembolism VTE Risk Factors Surgery No Mechanical VTE Prophylaxis d/t N/A MechProphylax Ordered No VTE Pharm Prophylaxis d/t NA PharmProphylax ordered
[2017-09-30 16:00] VITALS: BP 108/60
[2017-09-30 18:05] VITALS: BP 130/62
[2017-09-30 20:00] VITALS: BP 128/62
[2017-09-30 22:00] VITALS: BP 130/60
[2017-10-01 01:58] VITALS: BP 138/70
[2017-10-01 06:44] VITALS: BP 128/72
--- NOTE | 2017-10-01 08:19 | PN- Orthopedic ---
Subjective Subjective: PT in bed eating breakfast. States she had significant pain overnight but it is under control now after iv Morphine for breakthrough pain. denies paresthesias. no cp/sob Tolerating PO. passing flatus. Did not work with PT yesterday Objective Vital Signs and I&Os Vital Signs Date Time Temp Pulse Resp B/P B/P Pulse O2 O2 Flow FiO2 Mean Ox Delivery Rate 10/01 0644 98.2 70 22 128/72 99 Room Air 10/01 0158 98.0 80 20 138/70 98 Room Air / 2200 98.6 76 18 130/60 98 Room Air / 2000 98.7 86 18 128/62 94 Room Air 09/30 1805 99.1 92 18 130/62 95 Room Air 09/30 1600 98.8 72 18 108/60 97 Room Air Intake & Output 10/01 0800 10/01 0000 09/30 1600 09/30 0800 09/30 0000 09/29 1600 Intake Total 470 1470 Output Total 350 250 Balance 120 1220 Intake, IV 350 750 Intake, Oral 120 720 Number 0 Bowel Movements Output, 50 100 Drainage Output, Urine 300 150 Patient 191 lb Weight Weight Reported by Patient Measurement Method Physical Exam: gen- NAD resp- clear cardiac- RRR abd- ND, soft, NT ext- right knee in jassi wrap, 2+ DP on right foot. OnQ in place, Drain output 50cc overnight. distal sensory and motor intact Current Medications: Current Medications Sig/Dusty Start time Last Medication Dose Route Stop Time Status Admin Acetaminophen 1,000 MG Q6 09/30 1200 DC 10/01 IV 10/01 0601 0629 Acetaminophen 975 MG ONCE 09/30 0000 DC PO 09/30 2359 Aspirin 325 MG BID 09/30 2199 AC 09/30 PO 2137 Cefazolin Sodium 2 GM IQ8 09/30 1600 DC 10/01 N/A 1 UNIT IV 10/01 0029 0150 Cefazolin Sodium 2,000 MG ONCE 09/30 0000 DC IV 09/30 2359 Dextrose/Sodium 1,000 ML [id number] 09/30 1600 DC 10/01 Chloride IV 0404 Docusate Sodium 100 MG BID 09/30 2200 AC 09/30 PO 2137 Furosemide 20 MG DAILY NEEDED PRN 09/30 1600 AC PO Hydrochlorothiazide 25 MG DAILY 09/30 1000 AC PO Hydromorphone HCl 2 MG Q4P PRN 09/30 1600 AC PO Hydromorphone HCl 4 MG Q4P PRN 09/30 1600 AC 10/01 PO 0628 Ketorolac 15 MG Q8P PRN 09/30 1600 AC 10/01 Tromethamine IV 10/03 1559 0447 Morphine Sulfate 2 MG Q2P PRN 09/30 1600 AC 10/01 IV 0724 Morphine Sulfate 10 MG .STK-MED ONE 09/30 0941 DC IV 09/30 0942 Omeprazole 40 MG DAILY AC 10/01 0700 AC PO Ondansetron HCl 4 MG Q6P PRN 09/30 1600 AC IV Oxycodone HCl 10 MG ONCE 09/30 0000 DC PO 09/30 2359 Polyethylene Glycol 17 GM DAILY 10/01 1000 AC PO Promethazine HCl 12.5 MG Q6P PRN 09/30 1600 AC IV 10/07 1059 Ropivacaine 500 ML ONCE ONE 09/30 0915 DC ON-Q Ball 1 BAG INJ 09/30 0916 Results Last 48 Hours of Labs: Laboratory Tests 10/01 0730 Chemistry Sodium Pending Potassium Pending Chloride Pending Carbon Dioxide Pending Anion Gap Pending BUN Pending Creatinine Pending BUN/Creatinine Ratio Pending Hematology CBC w Diff Pending WBC Pending RBC Pending Hgb Pending Hct Pending MCV Pending MCH Pending MCHC Pending RDW Pending Plt Count Pending MPV Pending Assessment/Plan Assessment/Plan 66yo F SP Right Toatal Knee Revision POD1. Stable DVT ppx- [id number] bid and ALPS Pain management- PO meds and OnQ to stay in for 48hours Regular home meds Velázquez out DC IVF Reg diet PT- WBAT AM labs pending dressing change POD2 Core Measures Venous Thromboembolism VTE Risk Factors Surgery No Mechanical VTE Prophylaxis d/t N/A MechProphylax Ordered No VTE Pharm Prophylaxis d/t NA PharmProphylax ordered
[2017-10-01 08:25] LABS: ABSOLUTE BASOPHIL COUNT 0 /CUMM (0.0-0.2); ABSOLUTE EOSINOPHIL COUNT 0.1 /CUMM (0.0-0.7); ABSOLUTE GRANULOCYTE CT 6.6 /CUMM (1.4-6.5); ABSOLUTE LYMPH COUNT 1.3 /CUMM (1.2-3.4); ABSOLUTE MONOCYTE COUNT 0.6 /CUMM (0.10-0.60); BASOPHIL % 0.2 % (0.0-2.0); EOSINOPHIL % 0.9 % (0-5); GRANULOCYTE % 76.8 % (42.2-75.2); HEMATOCRIT 26.8 % (37-47); MEAN CORPUSCULAR HGB 24.6 PG (27.0-31.0); MEAN CORPUSCULAR HGB CONC 31.8 G/DL (33.0-37.0); MEAN CORPUSCULAR VOLUME 77.4 FL (81.0-99.0); MEAN PLATELET VOLUME 8.9 FL (7.4-10.4); PLATELET COUNT 302 /CUMM (130-400); RBC DISTRIBUTION WIDTH 19.9 % (11.5-14.5); RED BLOOD CELL CT 3.46 /CUMM (4.20-5.40); WHITE BLOOD CELL COUNT 8.6 /CUMM (4.8-10.8)
[2017-10-01 10:22] VITALS: BP 140/78
[2017-10-01 13:52] VITALS: BP 130/72
[2017-10-01 17:59] VITALS: BP 138/80
[2017-10-01 22:18] VITALS: BP 108/62
[2017-10-02 06:24] VITALS: BP 108/64
--- NOTE | 2017-10-02 08:19 | PN- Orthopedic ---
Subjective Subjective: pt sitting in bed, tolerating breakfast. pain under control. OnQ pump out. No N/V. passing flatus, no BM yet. Ambulating with PT using walker. Denies paresthesias. Denies Cp/SOB/HELMS Objective Vital Signs and I&Os Vital Signs Date Time Temp Pulse Resp B/P B/P Pulse O2 O2 Flow FiO2 Mean Ox Delivery Rate 10/02 0624 98.1 76 18 108/64 98 10/01 2218 99.2 73 18 108/62 96 Room Air 10/01 1759 99.0 74 18 138/80 96 Room Air 10/01 1352 99.0 70 20 130/72 96 Room Air 10/01 1022 98.1 72 20 140/78 99 Room Air 10/01 0851 Room Air Intake & Output 10/02 0800 10/02 0000 10/01 1600 10/01 0000 Intake Total 739 666 8546 470 1470 Output Total 310 800 0 450 250 Balance 170 -80 1355 20 1220 Intake, IV 75 350 750 Intake, Oral 322 131 6185 120 720 Number 0 0 0 Bowel Movements Output, 10 150 50 100 Drainage Output, Urine 300 650 0 400 150 Patient 191 lb Weight Weight Reported by Patient Measurement Method Physical Exam: gen-NAD resp- clear cariac-RRR abd-ND, soft, NT ext- right knee dresing changed, rita in place, no signs of infection. drains removed with serosang drainage from drainsite. 2+DP pulse. distal sensory and motor function intact Current Medications: Current Medications Sig/Dusty Start time Last Medication Dose Route Stop Time Status Admin Aspirin 325 MG BID 09/30 2199 AC 10/01 PO 2204 Docusate Sodium 100 MG BID 09/30 2199 AC 10/01 PO 220 Furosemide 20 MG DAILY NEEDED PRN 09/30 1600 AC PO Hydrochlorothiazide 25 MG DAILY 09/30 1000 AC 10/01 PO 0929 Hydromorphone HCl 2 MG Q3H PRN 10/01 0900 AC PO Hydromorphone HCl 4 MG Q3H PRN 10/01 0900 AC 10/02 PO 0653 Hydromorphone HCl 2 MG Q4P PRN 09/30 1600 DC PO Hydromorphone HCl 4 MG Q4P PRN 09/30 1600 DC 10/01 PO 0628 Ketorolac 15 MG Q8P PRN 09/30 1600 AC 10/02 Tromethamine IV 10/03 1559 0146 Morphine Sulfate 4 MG .STK-MED ONE 10/01 2109 DC IM 10/01 211 Morphine Sulfate 2 MG ONCE ONE 10/01 2030 DC IV 10/01 203 Morphine Sulfate 15 MG BID 10/01 1322 AC 10/01 PO 2205 Morphine Sulfate 2 MG Q2P PRN 09/30 1600 DC 10/01 IV 1128 Omeprazole 40 MG DAILY AC 10/01 0700 AC 10/02 PO 0618 Ondansetron HCl 4 MG Q6P PRN 09/30 1600 AC IV Patient Medication 1 ED ONE ONE 10/01 1700 DC 10/01 Teaching ED 10/01 1701 1913 Polyethylene Glycol 17 GM DAILY 10/01 1000 AC PO Potassium Chloride 20 MEQ BID 10/02 1000 AC PO 10/03 1001 Potassium Chloride 40 MEQ ONCE ONE 10/01 1215 DC 10/01 PO 10/01 1216 1348 Promethazine HCl 12.5 MG Q6P PRN 09/30 1600 AC IV 10/07 1059 Results Last 48 Hours of Labs: Laboratory Tests 10/02 10/01 0623 0730 Chemistry Sodium (137 - 145 mmol/L) 139 Potassium (3.5 - 5.1 mmol/L) Pending 3.2 L Chloride (98 - 107 mmol/L) 98 Carbon Dioxide (22 - 30 mmol/L) 31 H Anion Gap (5 - 16) 9 BUN (7 - 17 mg/dL) 14 Creatinine (0.5 - 1.0 mg/dL) 0.7 Estimated GFR (>60 ml/min) > 60 BUN/Creatinine Ratio (7 - 25 %) 20.0 Hematology CBC w Diff NO MAN DIFF REQ WBC (4.8 - 10.8 /CUMM) 8.6 RBC (4.20 - 5.40 /CUMM) 3.46 L Hgb (12.0 - 16.0 G/DL) 8.5 L Hct (37 - 47 %) 26.8 L MCV (81.0 - 99.0 FL) 77.4 L MCH (27.0 - 31.0 PG) 24.6 L MCHC (33.0 - 37.0 G/DL) 31.8 L RDW (11.5 - 14.5 %) 19.9 H Plt Count (130 - 400 /CUMM) 302 MPV (7.4 - 10.4 FL) 8.9 Gran % (42.2 - 75.2 %) 76.8 H Lymphocytes % (20.5 - 51.1 %) 15.2 L Monocytes % (1.7 - 9.3 %) 6.9 Eosinophils % (0 - 5 %) 0.9 Basophils % (0.0 - 2.0 %) 0.2 Absolute Granulocytes (1.4 - 6.5 /CUMM) 6.6 H Absolute Lymphocytes (1.2 - 3.4 /CUMM) 1.3 Absolute Monocytes (0.10 - 0.60 /CUMM) 0.6 Absolute Eosinophils (0.0 - 0.7 /CUMM) 0.1 Absolute Basophils (0.0 - 0.2 /CUMM) 0 Assessment/Plan Assessment/Plan 66yo F SP Right Toatal Knee Revision POD2. Stable. Dressing changed today and drains and OnQ pump removed. DVT ppx- [id number] bid and ALPS Pain management- PO meds Regular home meds Reg diet PT- WBAT AM labs pending, repleting K Plan for DC to rehab tomorrow, pt planning on going to [place] Core Measures Venous Thromboembolism VTE Risk Factors Surgery No Mechanical VTE Prophylaxis d/t N/A MechProphylax Ordered No VTE Pharm Prophylaxis d/t NA PharmProphylax ordered
[2017-10-02 09:55] VITALS: BP 116/78
[2017-10-02 13:55] VITALS: BP 116/58
[2017-10-02 22:23] VITALS: BP 140/70
[2017-10-03 06:00] VITALS: BP 127/66
--- NOTE | 2017-10-03 07:33 | PN- Orthopedic ---
Subjective Subjective: Awake, alert Feels that her pain was well controlled all day yesterday - having some pain now but is due for dilaudid in 30 minutes Working with PT - not cleared for home discharge Tolerating diet +BM yesterday Objective Vital Signs and I&Os Vital Signs Date Time Temp Pulse Resp B/P B/P Pulse O2 O2 Flow FiO2 Mean Ox Delivery Rate 10/03 06 97.3 62 16 127/66 97 Room Air 10/02 2223 98.9 72 20 140/70 97 Room Air 10/02 1600 96 Room Air 10/02 1355 98.5 78 20 116/58 98 Room Air 10/02 0955 70 116/78 Intake & Output 10/03 0810/03 0000 10/02 1600 10/02 0810/02 0000 10/01 1600 Intake Total 120 810 360 184 3283 Output Total 400 600 310 800 0 Balance -280 210 170 -80 1355 Intake, IV 10 75 Intake, Oral 120 800 866 169 9473 Number 2 0 0 0 Bowel Movements Output, 10 150 Drainage Output, Urine 400 600 300 650 0 Physical Exam: General: alert and oriented times three Chest: clear anteriorly bilaterally, RRR Abd: soft, good bs Ext: warm, no edema, normosensate, no calf tenderness R knee: dressed, dry, rita intact, ice pack in place Assessment/Plan Assessment/Plan 66yo female pod 3 s/p R TKR plan for dc to rehab today pain management with dilaudid/tylenol miralax/colace to continue asa 325mg po bid for dvt ppx fu instructions given Core Measures Venous Thromboembolism VTE Risk Factors Surgery No Mechanical VTE Prophylaxis d/t N/A MechProphylax Ordered No VTE Pharm Prophylaxis d/t NA PharmProphylax ordered
[2017-10-03] MEDS ORDERED: MORPHINE SULFAT15 M3 PO (07:42)
[2017-10-03] MEDS ORDERED: DILAUDID2 M1 PO (07:42)
[2017-10-03 10:06] VITALS: BP 127/66
== END 2017-10-03 11:02 | DRG 468 ==
LOC: SDA 02:32 → 2NB 02:32 → ENRESERV 14:21 → ENTRNSPT 15:02 → EDTRNSPT 15:07 → EDTRNSPTSTS 15:07 → 2NB 15:18 → CMPTRNSPT 15:33 → 2NB 10-03 11:02
PROVIDERS: Nurse Practitioner
PROC: 0SPC0JZ Removal of Synthetic Substitute from Right Knee Joint, Open Approach (ICD-10-PCS; principal; 2017-09-30)
PROC: 0SRC0J9 Replacement of Right Knee Joint with Synthetic Substitute, Cemented, Open Approach (ICD-10-PCS; 2017-09-30)
PROC: 3E0T3BZ Introduction of Anesthetic Agent into Peripheral Nerves and Plexi, Percutaneous Approach (ICD-10-PCS; 2017-09-30)
DX: T84.53XA Infection and inflammatory reaction due to internal right knee prosthesis, initial encounter (principal); E66.9 Obesity, unspecified; Z68.34 Body mass index [BMI] 34.0-34.9, adult; Z79.82 Long term (current) use of aspirin; I10 Essential (primary) hypertension; K21.9 Gastro-esophageal reflux disease without esophagitis; Z85.3 Personal history of malignant neoplasm of breast; Z88.0 Allergy status to penicillin; Z88.2 Allergy status to sulfonamides
CPT/HCPCS: 2NBP; 87070; 87075; 36415; 36592; 82436; 87086; 97110-GO; 97116-GO; 97161-GP; 97530-GO; C1713; EXP; J0131; J0690; J0735; J1885; J2550; J2795; J3490; J7042